=== PATIENT | male | born 1980 | race Caucasian/White ===

== ENCOUNTER 2021-05-13 13:00 | Emergency (ER) | payer BC ==
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
--- NOTE | 2021-05-13 14:30 | CR ---
INDICATION: Injury. TECHNIQUE: Three views. IMPRESSION: No nasal fracture. Nasal septum is mildly undulating but midline without obvious fracture. Appropriately aerated paranasal sinuses. Dictated by Anthony Leach MD @ 05/13/2021 2:29:[address] Anthony Leach @ May 13 2021 2:29PM
== END 2021-05-13 14:45 | disposition home or self-care (01) ==
LOC: MW.ED 13:00
DX: J01.00 Acute maxillary sinusitis, unspecified (principal)
CPT/HCPCS: 70160; 70160-26; 99283-25

== ENCOUNTER 2022-03-30 00:13 | Emergency (ER) | payer BC | END 2022-03-30 00:36 | LOC: MW.ED 00:13 | DX: F10.129 Alcohol abuse with intoxication, unspecified (principal) | CPT/HCPCS: 99282; 99284 ==

== ENCOUNTER 2023-10-06 17:55 | Emergency (ER) | payer BC ==
[2023-10-06] MEDS ORDERED: Ketorolac 30 MG/ML SDV IVPUSH ONE (18:11)
[2023-10-06] MEDS ORDERED: methylPREDNISolone Sodium Succinate 125 MG/2 ML SDV IVPUSH ONE (18:12)
[2023-10-06] MEDS ORDERED: Acetaminophen/HYDROcodone 325-5 MG Tab PO ONE ×2 (21:46→23:08)
[2023-10-06] MEDS ORDERED: Ondansetron 4 MG/2 ML SDV IVPUSH ONE (22:38)
[2023-10-06] MEDS ORDERED: Famotidine 20 MG/2 ML SDV IVPUSH ONE (23:33)
[2023-10-07] MEDS ORDERED: Lidocaine 4% 1 each Patch TOP STA (00:07)
== END 2023-10-07 00:38 | disposition home or self-care (01) ==
LOC: MW.ED 17:55
DX: S22.080A Wedge compression fracture of T11-T12 vertebra, initial encounter for closed fracture (principal); M54.31 Sciatica, right side; W01.0XXA Fall on same level from slipping, tripping and stumbling without subsequent striking against object, initial encounter; Y99.0 Civilian activity done for income or pay
CPT/HCPCS: 72070; 72100; 72131; 72192; 96374; 96375; 96376; 99284; A9270; J1885; J2405; J2930; J3360; J3490

== ENCOUNTER 2023-10-08 12:44 | Emergency (ER) | payer BC ==
[2023-10-08] MEDS ORDERED: Aspirin 81 MG Tab.Chew PO ONE (12:50)
[2023-10-08 13:00] LABS: BASOPHILS ABSOLUTE AUTO 0.02 K/uL (0.00-0.20); BASOPHILS PERCENT AUTO 0.1 % (0.0-1.0); EOSINOPHILS ABSOLUTE AUTO 0.04 K/uL (0.00-0.45); EOSINOPHILS PERCENT AUTO 0.3 % (0.0-6.0); HEMATOCRIT 50.7 % (42.0-52.0); IMMATURE GRAN ABSOLUTE AUTO 0.07 K/uL (0.00-0.05); IMMATURE GRAN PERCENT AUTO 0.5 % (0.0-0.4); LYMPHOCYTES ABSOLUTE AUTO 1.09 K/uL (1.00-4.80); LYMPHOCYTES PERCENT AUTO 7.5 % (24.0-44.0); MEAN CORPUSCULAR HEMOGLOBIN 33.9 pg (28.0-32.0); MEAN CORPUSCULAR HGB CONC 35.5 g/dL (32.0-36.0); MEAN CORPUSCULAR VOLUME 95.5 fL (83.0-99.0); MONOCYTES ABSOLUTE AUTO 0.96 K/uL (0.00-0.80); MONOCYTES PERCENT AUTO 6.6 % (0.0-8.0); PLATELET COUNT,PLT 136 K/uL (150-400); RED BLOOD CELL COUNT 5.31 M/uL (4.52-5.90); WHITE BLOOD CELL COUNT,WBC 14.58 K/uL (3.9-11.3)
[2023-10-08] MEDS ORDERED: Heparin Sodium 5,000 Units/ML Vial IVPUSH ONE (13:07)
[2023-10-08] MEDS ORDERED: Heparin Sodium/0.45% NaCl 500 ML IV SCH (13:15)
[2023-10-08] MEDS ORDERED: Iopamidol 755 MG/ML 500 ML Multipack Bottle IVPUSH STA (13:19)
[2023-10-08 13:40] LABS: ALBUMIN 3.3 g/dL (3.4-5.0); BILIRUBIN TOTAL 1.3 mg/dL (0.2-1.0); CALCIUM 9.3 mg/dL (8.5-10.1); CARBON DIOXIDE,CO2 25.6 mmol/L (21.0-32.0); CREATININE 0.9 mg/dL (0.8-1.3); EST CRCL DRUG DOSING (CG) 101.6 mL/min; PROTEIN TOTAL,TP 6.6 g/dL (6.4-8.2)
[2023-10-08] MEDS ORDERED: Ondansetron 4 MG/2 ML SDV IVPUSH ONE (13:45)
[2023-10-08] MEDS ORDERED: Morphine 4 MG/ML Syringe IVPUSH ONE (13:45)
[2023-10-08] MEDS ORDERED: Nicotine 21 MG/24 Hr Patch TRDERM ONE (13:46)
[2023-10-08] MEDS ORDERED: Atropine 1 MG/ML SDV IVPUSH ONE (14:16)
[2023-10-08] MEDS ORDERED: LORazepam 2 MG/ML SDV IVPUSH ONE (14:22)
== END 2023-10-08 15:38 ==
LOC: MW.ED 12:44
DX: I74.3 Embolism and thrombosis of arteries of the lower extremities (principal)
CPT/HCPCS: 36415; 75635; 80053; 82550; 83605; 85025; 85730; 96365; 96366; 96375; 99285; A9270; J1644; J2060; J2270; J2405; Q9967; 99284